=== PATIENT | female | born 1960 | race Caucasian/White ===

== ENCOUNTER 2018-03-20 15:37 | Outpatient (CLI) | payer OTHER ==
--- NOTE | 2018-03-20 17:24 | RAD ---
CERVICAL SPINE RADIOGRAPHS THREE VIEWS: 03/20/18 PROVIDED CLINICAL HISTORY: Burning and tingling in the neck. FINDINGS: There is reversal of the normal cervical lordosis. Cervical alignment appears otherwise normal. Verte bral body heights and intervertebral disc space heights appear preserved. No prevertebral soft tissue swelling apparent. End plate degenerative changes are seen at C5-6. The visualized lung apices appea r clear. IMPRESSION: Mild cervical degenerative change. POS: [facility]
== END 2018-03-20 15:38 | disposition home or self-care (01) ==
LOC: SCSRAD 15:37
PROVIDERS: ATTEND Internal Medicine
DX: M47.812 Spondylosis without myelopathy or radiculopathy, cervical region (principal)
CPT/HCPCS: 72040

== ENCOUNTER 2018-06-21 12:03 | Emergency (ER) | payer OTHER ==
[2018-06-21] MEDS ORDERED: Ondansetron ODT 4 MG TAB ONE (12:27)
[2018-06-21] MEDS ORDERED: cefTRIAXone\\ROCEPHIN 1 GM VIAL ONE (12:27)
[2018-06-21] MEDS ORDERED: Lidocaine 1% PF 5 ML VIAL ONE (12:27)
[2018-06-21] MEDS ORDERED: Cephalexin 250 MG CAP ONE (12:27)
== END 2018-06-21 12:54 | disposition home or self-care (01) ==
LOC: ERS 12:03
DX: L03.115 Cellulitis of right lower limb (principal); E03.9 Hypothyroidism, unspecified; I10 Essential (primary) hypertension; F17.210 Nicotine dependence, cigarettes, uncomplicated; Z79.899 Other long term (current) drug therapy
CPT/HCPCS: 96372; J0696; J2001; Q0162

== ENCOUNTER 2018-06-23 19:07 | Emergency (ER) | payer OTHER | END 2018-06-24 00:31 | disposition home or self-care (01) | LOC: ERS 19:07 | DX: L02.416 Cutaneous abscess of left lower limb (principal); E03.9 Hypothyroidism, unspecified; I10 Essential (primary) hypertension; F17.210 Nicotine dependence, cigarettes, uncomplicated; Z79.899 Other long term (current) drug therapy | CPT/HCPCS: 36416; 96365; 96366; J3370; J7050 ==

== ENCOUNTER 2018-07-25 12:44 | Emergency (ER) | payer OTHER ==
[2018-07-25 13:23] LABS: #Basophils 0.1 thou/uL (0.0-0.2); #Eosinphils 0.3 thou/uL (0.0-0.7); #Lymphocytes 2.4 thou/uL (1.20-3.40); #Monocytes 0.4 thou/uL (0.11-0.59); #Neutrophils 8.1 thou/uL (1.40-6.50); %Basophils 0.5 % (0.0-1.0); %Eosinophils 2.5 % (0.0-10.0); %Lymphocytes 21.1 % (21.0-51.0); %Monocytes 3.9 % (0.0-10.0); Hemoglobin 15.3 g/dL (12.0-16.0); Mean Corpuscular HGB CONC 31.7 g/dL (32.0-36.0); Mean Corpuscular Hemoglobin 30.5 pg (27.0-31.0); Mean Corpuscular Volume 96.2 fL (78.0-98.0); Mean Platelet Volume 8.7 fL (7.4-10.4); Platelet Count 287 thou/uL (130-400); RBC Distribution Width 12.3 % (11.5-14.5); Red Blood Cell (RBC) Count 5.01 mill/uL (4.20-5.40); White Blood Cell (WBC) Count 11.2 thou/uL (4.8-10.8)
[2018-07-25 13:42] LABS: Bilirubin Negative (Negative); Blood, Urine Negative (Negative); Clarity CLOUDY (Clear); Glucose, Urine (Dipstick) Negative (Negative); Leukocyte Small (Negative); Nitrite Negative (Negative); Protein, Urine (Dipstick) Negative (Neg-Trace); Specific Gravity, Urine 1.006 (1.002-1.036); Urobilinogen 0.2 mg/dL (0.2-1.0)
[2018-07-25 13:44] LABS: Bacteria/HPF None Seen HPF (None Seen); Hyaline Casts/LPF 4-6 HYALINE CAST LPF (0-3 Hyaline); Pathc Cast-AUWi Flag 1.88 (0-2.49)
[2018-07-25 13:46] LABS: ALT (SGPT) 17 U/L (8-55); AST (SGOT) 19 U/L (5-34); Albumin 4.3 g/dL (3.5-5.0); Alkaline Phosphatase 96 U/L (40-150); Anion Gap 15 mmol/L (10-20); BUN (Urea Nitrogen) 9 mg/dL (9.8-20.1); Bilirubin, Total 0.3 mg/dL (0.2-1.2); Calc. Creatinine Clearance 0 mL/min (70-130); Calcium 9.8 mg/dL (7.8-10.44); Carbon Dioxide 23 mmol/L (22-29); Chloride 107 mmol/L (98-107); Estimated GFR-MDRD 80; Globulin 3.2 g/dL (2.4-3.5); Glucose 170 mg/dL (70-105); Protein, Total 7.5 g/dL (6.0-8.3); Sodium 141 mmol/L (136-145)
== END 2018-07-25 15:10 | disposition home or self-care (01) ==
LOC: ERS 12:44
DX: E11.65 Type 2 diabetes mellitus with hyperglycemia (principal); R51 Headache; F17.210 Nicotine dependence, cigarettes, uncomplicated; E03.9 Hypothyroidism, unspecified; I10 Essential (primary) hypertension
CPT/HCPCS: 36416; 80053; 81003; 81015; 82010; 84484; 85025; 96360